=== PATIENT | female | born 1955 | race Asian ===

== ENCOUNTER → 2016-09-08 | Outpatient (CLI) | payer OTHER ==
[~2016-09-08] MED LIST: ASPI-496 PO; CALC-112 PO; COLE3.754 PO; MULT-658 PO; TRAZ50TA18 PO
== END | disposition home or self-care (01) ==
LOC: EDSTATUS 09-03 08:30 → CFH 08:59
PROVIDERS: ATTEND Family Medicine
DX: Z12.31 Encounter for screening mammogram for malignant neoplasm of breast (principal); Z13.820 Encounter for screening for osteoporosis; M85.89 Other specified disorders of bone density and structure, multiple sites
CPT/HCPCS: 77080; G0202

== ENCOUNTER 2018-11-14 11:39 | Outpatient (CLI) | payer OTHER ==
[~2018-11-14 11:39] MED LIST changes: +COLE3.753 PO; -COLE3.754 PO; -TRAZ50TA18 PO; +TRAZ50TA66 PO
== END 2018-11-14 23:59 | disposition home or self-care (01) ==
LOC: CFH 11:39
PROVIDERS: ATTEND Obstetrics & Gynecology Female Pelvic Medicine and Reconstructive Surgery
DX: M85.88 Other specified disorders of bone density and structure, other site (principal); Z78.0 Asymptomatic menopausal state
CPT/HCPCS: 77080